=== PATIENT | male | born 1980 | race Caucasian/White ===

== ENCOUNTER 2016-12-06 21:02 | Emergency (ER) | payer SELFPAY ==
[~2016-12-06] VITALS: Ht 170.1 cm; Wt 99.8 kg
[~2016-12-06 21:02] MED LIST: ALBUTEROL0.09 MG/A2 IH; ALLEGRA180 MG PO; AMITRIPTYLINE10 MG PO; ANAPROX DS550 MG PO; BENTYL10 MG PO; BUPROPION HCL100 MG PO; BUPROPION75 MG PO; CLARITIN10 MG PO; CYCLOBENZAPRINE10 MG PO; DAYPRO600 M1 PO; FLEXERIL5 MG PO; GABAPENTIN300 M1 PO; HYDROCODONE BIT1 T11 PO; KEFLEX500 MG PO; LAMICTAL100 MG PO; LIDODERM 5% PATC1 EA PO; MINIPRESS5 M1 PO; MOTRIN600 MG PO; MOTRIN800 MG PO; Motrin,Rufen800 MG PO; NAPROSYN500 MG PO; NORCO 325 MG-51 TAB PO; OMEPRAZOLE MAGN20 MG PO; PEPCID20 MG PO; PERCOCET 325 MG1 TA2 PO; PREDNISONE20 M1 PO; PREDNISONE20 MG PO; PRILOSEC10 MG PO; PRILOSEC20 M2 PO; ROBAXIN500 M1 PO; ROBAXIN750 MG PO; SERTRALINE25 MG PO; SINGULAIR10 M1 PO; ULTRAM50 MG PO; VENLAFAXINE75 MG PO; VICODIN 5/500 505 MG PO; VICODIN 500 MG-1 TAB PO; VITAMIN D400 I1 PO; VOLTAREN50 M1 PO; ZOFRAN ODT4 MG SL
[2016-12-06] MEDS ORDERED: Motrin,Rufen800 MG PO (23:02)
[2016-12-06] MEDS ORDERED: CYCLOBENZAPRINE5 M3 PO (23:02)
== END 2016-12-06 23:08 | disposition home or self-care (01) ==
LOC: ED 21:02
DX: M54.16 Radiculopathy, lumbar region (principal); Z87.442 Personal history of urinary calculi

== ENCOUNTER 2017-06-13 15:00 | Emergency (ER) | payer OTHER ==
[~2017-06-13] VITALS: Ht 170.1 cm; Wt 104.3 kg
[~2017-06-13 15:00] MED LIST changes: +CYCLOBENZAPRINE5 M3 PO
[2017-06-13] MEDS ORDERED: NORCO 5-325 TA1 EACH PO (17:03)
[2017-06-13] MEDS ORDERED: CYCLOBENZAPRINE5 M3 PO (17:03)
[2017-06-13] MEDS ORDERED: Motrin,Rufen800 MG PO (17:03)
== END 2017-06-13 18:25 | disposition home or self-care (01) ==
LOC: ED 15:00
DX: S30.0XXA Contusion of lower back and pelvis, initial encounter (principal); F10.10 Alcohol abuse, uncomplicated; Z79.899 Other long term (current) drug therapy; W10.8XXA Fall (on) (from) other stairs and steps, initial encounter; Y93.89 Activity, other specified; Y92.89 Other specified places as the place of occurrence of the external cause; Y99.8 Other external cause status

== ENCOUNTER 2018-03-08 08:29 | Emergency (ER) | payer MEDICARE ==
[~2018-03-08] VITALS: Ht 170.1 cm; Wt 104.3 kg
--- NOTE | ~2018-03-08 | EKG ---
[place], [place] ELECTROCARDIOGRAM REPORT NAME: SOLEDAD MERCEDES UNIT #: [id number] ROOM: DOCTOR: EPIPHANY DRAFT REPORT BIRTHDATE: [birth year] [facility] Test Date: 2018-03-08 Test Time: 08:32:54 Pat Name: SOLEDAD MERCEDES Department: Room: Gender: Pre K Lead Teacher: KATIE : 1980 Requested By: DINO HOLBROOK Order Number: [id number] Reading MD: Virgilio Werner MD Measurements Intervals [place] Rate: 63 P: 38 MT: 154 QRS: 16 QRSD: 101 T: 30 QT: 383 QTc: 393 Interpretive Statements Sinus rhythm Normal ECG Electronically Signed On 03-12-2018 12:15:01 PDT by Virgilio Werner MD CM:EKGRPT:ELECTROCARDIOGRAM REPORT 0832 1215 [facility] DINO HOLBROOK MD
--- NOTE | ~2018-03-08 | EKG ---
[place], [place] ELECTROCARDIOGRAM REPORT NAME: SOLEDAD MERCEDES UNIT #: [id number] ROOM: DOCTOR: EPIPHANY DRAFT REPORT BIRTHDATE: [birth year] [facility] [place] Test Date: 2018-03-08 Test Time: 11:40:43 Pat Name: SOLEDAD MERCEDES Department: Room: Gender: Content Architect: Manisha Avila : 1980 Requested By: DINO HOLBROOK Order Number: [id number] Reading MD: Virgilio Werner MD Measurements Intervals [place] Rate: 63 P: 41 AR: 166 QRS: 11 QRSD: 100 T: 29 QT: 400 QTc: 410 Interpretive Statements Sinus rhythm The ECG is normal. Electronically Signed On 03-12-2018 12:15:34 PDT by Virgilio Werner MD CM:EKGRPT:ELECTROCARDIOGRAM REPORT 1140 1215 DINO HOLBROOK MD [facility] DINO HOLBROOK MD
[~2018-03-08 08:29] MED LIST changes: +NORCO 5-325 TA1 EACH PO
[2018-03-08 08:44] LABS: BASO # 0.1 10*3/uL (0.0-0.1); BASO % 0.8 % (0.0-1.0); EOS # 0.2 10*3/uL (0.0-0.4); EOS % 3.7 % (1.0-4.0); HEMATOCRIT 43.3 % (42.0-52.0); HEMOGLOBIN 14.7 g/dl (14.0-18.0); LYMPH % 31.2 % (27.0-41.0); MEAN CORPUSCULAR HGB 30.9 pg (27.0-31.0); MEAN CORPUSCULAR HGB CONC 33.9 g/dl (33.0-37.0); MEAN PLATELET VOLUME 9.5 fl (9.6-12.3); MONO # 0.4 10*3/uL (0.1-1.0); MONO % 6.6 % (3.0-9.0); NEUT # 3.8 10*3/uL (2.3-7.9); NEUT % 57.5 % (47.0-73.0); PLATELET COUNT AUTOMATED 268 10*3/uL (130-400); RED BLOOD COUNT 4.76 10*6/uL (4.50-5.90); RED CELL DISTRI WIDTH 12.3 % (0-14.5); WHITE BLOOD COUNT 6.5 10*3/uL (4.8-10.8)
[2018-03-08 08:52] LABS: ACT PARTIAL THROMBO TIME 22.5 SECONDS (20.8-31.5)
[2018-03-08 08:59] LABS: ALBUMIN 3.6 gm/dl (3.1-4.5); ALKALINE PHOSPHATASE 99 U/L (45-117); BUN 13 mg/dl (7-24); CHLORIDE 104 mmol/L (98-107); CREATININE 1.39 mg/dL (0.70-1.30); POTASSIUM 3.9 mmol/L (3.5-5.1); SGOT/AST 15 IU/L (3-35); SGPT/ALT 28 U/L (12-78); SODIUM 139 mmol/L (136-145); TOTAL PROTEIN 7.9 gm/dL (6.4-8.2)
[2018-03-08 09:06] LABS: TROPONIN I < 0.015 ng/ml (<0.045)
== END 2018-03-08 12:00 | disposition home or self-care (01) ==
LOC: ED 08:29
PROVIDERS: Emergency Medicine
DX: R07.9 Chest pain, unspecified (principal); R06.02 Shortness of breath; I10 Essential (primary) hypertension; E78.00 Pure hypercholesterolemia, unspecified; G89.29 Other chronic pain; Z79.899 Other long term (current) drug therapy; Z87.442 Personal history of urinary calculi

== ENCOUNTER → 2018-09-18 | Emergency (ER) | payer MEDICARE ==
[~2018-09-18] VITALS: Ht 170.1 cm; Wt 106.6 kg
[~2018-09-18] MED LIST changes: +HYDROCHLOROTHIA25 M1 PO
== END ==
LOC: ED 20:31
DX: R19.7 Diarrhea, unspecified (principal); R11.0 Nausea; G89.29 Other chronic pain; Z79.899 Other long term (current) drug therapy; Z87.442 Personal history of urinary calculi

== ENCOUNTER 2019-01-31 17:21 | Emergency (ER) | payer MEDICARE ==
[~2019-01-31] VITALS: Ht 170.1 cm; Wt 104.3 kg
[2019-01-31] MEDS ORDERED: PREDNISONE20 M1 PO (19:37)
[2019-01-31] MEDS ORDERED: ROBAXIN500 M1 PO (19:37)
== END 2019-01-31 20:02 | disposition home or self-care (01) ==
LOC: ED 17:21
DX: M54.41 Lumbago with sciatica, right side (principal); Z87.442 Personal history of urinary calculi; Z79.899 Other long term (current) drug therapy

== ENCOUNTER 2019-02-16 13:57 | Emergency (ER) | payer MEDICARE ==
[~2019-02-16] VITALS: Ht 170.1 cm; Wt 106.6 kg
[2019-02-16] MEDS ORDERED: CYCLOBENZAPRINE5 M3 PO (14:58)
[2019-02-16] MEDS ORDERED: KETOROLAC10 MG PO (14:58)
== END 2019-02-16 15:15 | disposition home or self-care (01) ==
LOC: ED 13:57
DX: M54.5 Low back pain (principal); G89.29 Other chronic pain; Z79.899 Other long term (current) drug therapy; Z87.442 Personal history of urinary calculi

== ENCOUNTER 2019-07-31 10:58 | Emergency (ER) | payer OTHER ==
[~2019-07-31] VITALS: Ht 170.1 cm; Wt 106.6 kg
[~2019-07-31 10:58] MED LIST changes: +KETOROLAC10 MG PO
[2019-07-31] MEDS ORDERED: METHOCARBAMOL500 M1 PO (11:57)
[2019-07-31] MEDS ORDERED: MEDROL DOSEPAK4 MG PO (11:57)
[2019-07-31] MEDS ORDERED: NAPROSYN500 MG PO (11:57)
== END 2019-07-31 11:44 | disposition home or self-care (01) ==
LOC: ED 10:58
DX: M54.5 Low back pain (principal); G89.29 Other chronic pain; K21.9 Gastro-esophageal reflux disease without esophagitis; I10 Essential (primary) hypertension; Z79.899 Other long term (current) drug therapy

== ENCOUNTER 2019-10-23 13:54 | Emergency (ER) | payer OTHER ==
[~2019-10-23] VITALS: Ht 170.1 cm; Wt 108.9 kg
[~2019-10-23 13:54] MED LIST changes: +MEDROL DOSEPAK4 MG PO; +METHOCARBAMOL500 M1 PO
[2019-10-23] MEDS ORDERED: NAPROSYN500 MG PO (15:17)
[2019-10-23] MEDS ORDERED: METHOCARBAMOL500 M1 PO (15:17)
[2019-10-23] MEDS ORDERED: MEDROL DOSEPAK4 MG PO (15:17)
== END 2019-10-23 22:43 | disposition home or self-care (01) ==
LOC: ED 13:54
DX: M54.12 Radiculopathy, cervical region (principal); Z79.899 Other long term (current) drug therapy

== ENCOUNTER 2019-11-20 15:41 | Emergency (ER) | payer OTHER ==
[~2019-11-20] VITALS: Ht 170.1 cm; Wt 106.6 kg
== END 2019-11-20 17:55 | disposition home or self-care (01) ==
LOC: ED 15:41
DX: S93.401A Sprain of unspecified ligament of right ankle, initial encounter (principal); Z79.899 Other long term (current) drug therapy; Z79.2 Long term (current) use of antibiotics; X58.XXXA Exposure to other specified factors, initial encounter; Y93.89 Activity, other specified; Y92.89 Other specified places as the place of occurrence of the external cause; Y99.8 Other external cause status

== ENCOUNTER 2020-02-10 20:14 | Observation (INO) | payer OTHER ==
[~2020-02-10] VITALS: Ht 170.2 cm; Wt 107.5 kg
[2020-02-10 20:25] VITALS: BP 132/83
[2020-02-10 20:49] VITALS: BP 157/81
[2020-02-10 21:30] VITALS: BP 143/77
[2020-02-10 21:54] LABS: BASO # 0.1 10*3/uL (0.0-0.1); EOS # 0.3 10*3/uL (0.0-0.4); EOS % 3.8 % (1.0-4.0); LYMPH # 3.2 10*3/uL (1.3-4.4); LYMPH % 40.8 % (27.0-41.0); MEAN CELL VOLUME 90.3 fl (80.0-94.0); MEAN CORPUSCULAR HGB 30.1 pg (27.0-31.0); MEAN CORPUSCULAR HGB CONC 33.3 g/dl (33.0-37.0); MEAN PLATELET VOLUME 9.8 fl (9.6-12.3); MONO # 0.7 10*3/uL (0.1-1.0); MONO % 8.2 % (3.0-9.0); NEUT # 3.7 10*3/uL (2.3-7.9); NEUT % 46.1 % (47.0-73.0); PLATELET COUNT AUTOMATED 278 10*3/uL (130-400); RED BLOOD COUNT 4.65 10*6/uL (4.50-5.90); RED CELL DISTRI WIDTH 12.5 % (0-14.5); WHITE BLOOD COUNT 7.9 10*3/uL (4.8-10.8)
[2020-02-10 22:12] LABS: ALBUMIN 3.6 gm/dl (3.1-4.5); ALKALINE PHOSPHATASE 83 U/L (45-117); BUN 14 mg/dl (7-24); CHLORIDE 106 mmol/L (98-107); CREATININE 1.26 mg/dL (0.70-1.30); POTASSIUM 3.7 mmol/L (3.5-5.1); SGOT/AST 14 IU/L (3-35); SGPT/ALT 27 U/L (12-78); SODIUM 138 mmol/L (136-145)
[2020-02-10 22:16] LABS: TOTAL PROTEIN 7.6 gm/dL (6.4-8.2); TROPONIN I < 0.015 ng/ml (<0.045)
--- NOTE | 2020-02-10 22:29 | NUR ---
PATIENT IN BED AWAKE AND ALERT ON CELLPHONE AT THIS TIME. NO ACUTE DISTRESS NOTED. RN WILL CONT TO MONITOR.
[2020-02-10 23:01] VITALS: BP 123/74
[2020-02-11 00:50] VITALS: BP 148/93
--- NOTE | 2020-02-11 00:50 | NUR ---
A 39, admitted to 4E, under the services of BIENVENIDO Dior DO with a diagnosis of SYNCOPE AND COLLAPSE. Chief complaint is PT WAS STANDING UP AFTER USING BATHROOM PULLING UP HIS PANTS AND HE REMEMBERS WAKING UP ON THE FLOOR. Patient arrived via bed from ER. Monitor applied. Initial assessment completed. Vital signs taken and recorded. BIENVENIDO DIOR DO notified of admission to the unit. Orders received. See assessment for past medical history, medications and allergies. Patient and/or family oriented to unit. [facility] 4E. visitation policy reviewed. Clothing/patient valuable form completed. OMARI SKINNER
[2020-02-11] MEDS ORDERED: LYRICA75 M1 PO (01:25)
[2020-02-11] MEDS ORDERED: ZESTRIL10 MG PO (01:25)
[2020-02-11] MEDS ORDERED: NATURE'S BLEND F1 MG PO (01:25)
[2020-02-11] MEDS ORDERED: VITAMIN B1250 MCG PO (01:26)
[2020-02-11 03:22] LABS: BASO # 0.1 10*3/uL (0.0-0.1); BASO % 0.9 % (0.0-1.0); EOS # 0.3 10*3/uL (0.0-0.4); EOS % 4.4 % (1.0-4.0); HEMATOCRIT 42.8 % (42.0-52.0); LYMPH # 2.9 10*3/uL (1.3-4.4); LYMPH % 43.2 % (27.0-41.0); MEAN CELL VOLUME 89.7 fl (80.0-94.0); MEAN CORPUSCULAR HGB 30.2 pg (27.0-31.0); MEAN CORPUSCULAR HGB CONC 33.6 g/dl (33.0-37.0); MEAN PLATELET VOLUME 9.6 fl (9.6-12.3); MONO # 0.6 10*3/uL (0.1-1.0); MONO % 8.7 % (3.0-9.0); NEUT # 2.9 10*3/uL (2.3-7.9); NEUT % 42.7 % (47.0-73.0); PLATELET COUNT AUTOMATED 285 10*3/uL (130-400); RED BLOOD COUNT 4.77 10*6/uL (4.50-5.90); RED CELL DISTRI WIDTH 12.2 % (0-14.5); WHITE BLOOD COUNT 6.8 10*3/uL (4.8-10.8)
[2020-02-11 03:33] LABS: INTERNATIONAL NORM RATIO 1.1 (2.0-3.5)
[2020-02-11 03:39] LABS: ALBUMIN 3.4 gm/dl (3.1-4.5); ALKALINE PHOSPHATASE 79 U/L (45-117); BUN 12 mg/dl (7-24); CHLORIDE 108 mmol/L (98-107); CREATININE 1.12 mg/dL (0.70-1.30); HDL CHOLESTEROL 34 mg/dl (40-60); POTASSIUM 3.7 mmol/L (3.5-5.1); SGOT/AST 12 IU/L (3-35); SGPT/ALT 26 U/L (12-78); SODIUM 140 mmol/L (136-145); TOTAL PROTEIN 7.3 gm/dL (6.4-8.2); TRIGLYCERIDES 112 mg/dl (<150); VLDL CHOLESTEROL 22 mg/dL (6-40)
[2020-02-11 03:40] LABS: CHOLESTEROL 233 mg/dL (<200); LDL CHOLESTEROL 177 mg/dL (9-159)
--- NOTE | 2020-02-11 04:00 | NUR ---
PT RESTING IN BED WITH EYES CLOSED. RESP-EASY AND REGULAR. IVF INFUSING WITH NO PROBLEM. CALL LIGHT IN REACH.
--- NOTE | 2020-02-11 06:00 | NUR ---
PT RESTING IN BED WITH EYES CLOSED. RESP-EASY AND REGULAR. IVF INFUSING WITH NO PROBLEM. CALL LIGHT IN REACH.
--- NOTE | 2020-02-11 07:30 | NUR ---
RESTING IN BED. VOICES NO CONCERNS. ASSESSMENT COMPLETE. VSS.
--- NOTE | 2020-02-11 07:57 | NUR ---
24 HR chart check completed.
[2020-02-11 08:00] VITALS: BP 124/86
--- NOTE | 2020-02-11 08:08 | NUR ---
NOTIFIED PATIENTS MED REC NEEDS DONE.
--- NOTE | 2020-02-11 09:00 | NUR ---
Supervisor [employer] Service in to talk to patient. Patient states lives at home with . There are 2 steps in the home. Physician: me doctor in [facility], doesn't remember her last name, first name is Dinah Pharmacy: [facility] Home health services: none Patient's level of ADLs: INDEPENDENT Patient has working utilities: all working DME: none Follow-up physician's appointment after d/c: will be made by hospitalist nurse director upon discharge Does patient want to access PORTAL?: no Discharge plan discussed with patient, he states he lives at home with his and family, he is independent in adls and ambulation, drives, he states he will return home when discharged and denies any home needs, case management will follow. KERRI MUNOZ
--- NOTE | 2020-02-11 11:20 | NUR ---
Discharge instructions reviewed with patient/family. Patient receptive and verbalizes understanding. Follow-up care arranged. Written instructions given to patient/family. IV REMOVED AND MONITOR TAKEN OFF. TALHA POLO
== END 2020-02-11 11:20 | disposition home or self-care (01) ==
LOC: ED 20:14 → EDHOLD 23:17 → 4E 02-11 00:13
PROVIDERS: Emergency Medicine; Student in an Organized Health Care Education/Training Program; ADMIT Family Medicine; ATTEND Family Medicine
DX: R55 Syncope and collapse (principal); E78.5 Hyperlipidemia, unspecified; E83.51 Hypocalcemia; M54.9 Dorsalgia, unspecified; I10 Essential (primary) hypertension; F43.10 Post-traumatic stress disorder, unspecified; F41.9 Anxiety disorder, unspecified; F31.9 Bipolar disorder, unspecified

== ENCOUNTER 2020-02-19 21:55 | Emergency (ER) | payer OTHER ==
[~2020-02-19] VITALS: Ht 170.1 cm; Wt 108.9 kg
[~2020-02-19 21:55] MED LIST changes: +LYRICA75 M1 PO; +NATURE'S BLEND F1 MG PO; +VITAMIN B1250 MCG PO; +ZESTRIL10 MG PO
[2020-02-19 22:53] LABS: BASO # 0.1 10*3/uL (0.0-0.1); BASO % 0.7 % (0.0-1.0); EOS # 0.2 10*3/uL (0.0-0.4); EOS % 2.3 % (1.0-4.0); HEMATOCRIT 39.3 % (42.0-52.0); LYMPH # 2.3 10*3/uL (1.3-4.4); LYMPH % 28.8 % (27.0-41.0); MEAN CELL VOLUME 89.3 fl (80.0-94.0); MEAN CORPUSCULAR HGB 30.5 pg (27.0-31.0); MEAN CORPUSCULAR HGB CONC 34.1 g/dl (33.0-37.0); MEAN PLATELET VOLUME 9.6 fl (9.6-12.3); MONO # 0.7 10*3/uL (0.1-1.0); MONO % 8.6 % (3.0-9.0); NEUT # 4.8 10*3/uL (2.3-7.9); NEUT % 59.4 % (47.0-73.0); PLATELET COUNT AUTOMATED 281 10*3/uL (130-400); RED CELL DISTRI WIDTH 12.2 % (0-14.5); WHITE BLOOD COUNT 8.1 10*3/uL (4.8-10.8)
[2020-02-19 23:07] LABS: ALBUMIN 3.7 gm/dl (3.1-4.5); ALKALINE PHOSPHATASE 82 U/L (45-117); BUN 16 mg/dl (7-24); CHLORIDE 106 mmol/L (98-107); CREATININE 1.43 mg/dL (0.70-1.30); POTASSIUM 3.3 mmol/L (3.5-5.1); SGOT/AST 19 IU/L (3-35); SGPT/ALT 24 U/L (12-78); SODIUM 139 mmol/L (136-145); TOTAL PROTEIN 7.6 gm/dL (6.4-8.2)
[2020-02-19 23:08] LABS: ETHYL ALCOHOL < 3.0 mg/dl (<3)
[2020-02-19 23:09] LABS: ACETAMINOPHEN (TYLENOL) < 5.0 ug/ml (10-30)
[2020-02-20 01:01] LABS: URINE AMPHETAMINES < 1000 (1000ng/ml); URINE BARBITURATES < 200 (200ng/ml); URINE BENZODIAZEPINES < 200 (200ng/ml); URINE CANNABINOIDS (THC) > 50 (50ng/ml); URINE COCAINE < 300 (300ng/ml); URINE METHADONE < 300 (300ng/ml); URINE OPIATES < 300 (300ng/ml)
[2020-02-20 01:03] LABS: URINE PHENCYCLIDINE < 25 (25ng/ml)
[2020-02-20 01:27] LABS: BILIRUBIN NEGATIVE; BLOOD NEGATIVE (NEGATIVE); CLARITY CLEAR (CLEAR); COLOR YELLOW (YELLOW); GLUCOSE NEGATIVE; KETONE NEGATIVE; LEUKO ESTERASE NEGATIVE (NEGATIVE); NITRITE NEGATIVE (NEGATIVE); SPECIFIC GRAVITY > 1.030 (1.001-1.030)
[2020-02-20 01:28] LABS: RBC 0-2 rbc/hpf (0-2); WBC 0-2 wbc/hpf (0-5)
== END 2020-02-20 06:35 | disposition home or self-care (01) ==
LOC: ED 21:55
PROVIDERS: Emergency Medicine
DX: Z79.899 Other long term (current) drug therapy (principal); F41.9 Anxiety disorder, unspecified; K21.9 Gastro-esophageal reflux disease without esophagitis

== ENCOUNTER 2020-04-28 13:05 | Emergency (ER) | payer OTHER ==
[~2020-04-28] VITALS: Ht 170.1 cm; Wt 104.3 kg
[2020-04-28] MEDS ORDERED: MEDROL DOSEPAK4 MG PO (13:32)
== END 2020-04-28 13:40 | disposition home or self-care (01) ==
LOC: ED 13:05
DX: G89.29 Other chronic pain (principal); M54.9 Dorsalgia, unspecified; Z79.899 Other long term (current) drug therapy

== ENCOUNTER → 2020-06-26 | Outpatient (CLI) | payer OTHER | END | disposition home or self-care (01) | LOC: RAD 08:13 | PROVIDERS: ATTEND Nurse Practitioner Family | DX: M54.41 Lumbago with sciatica, right side (principal); M54.16 Radiculopathy, lumbar region ==

== ENCOUNTER → 2020-08-06 | Outpatient (CLI) | payer OTHER | END | disposition home or self-care (01) | LOC: MRI 07-30 01:35 | PROVIDERS: ATTEND Nurse Practitioner Family | DX: M51.26 Other intervertebral disc displacement, lumbar region (principal); M48.061 Spinal stenosis, lumbar region without neurogenic claudication; M48.07 Spinal stenosis, lumbosacral region; M54.41 Lumbago with sciatica, right side ==

== ENCOUNTER → 2020-08-12 | Outpatient (CLI) | payer OTHER | END | disposition home or self-care (01) | LOC: US 01:30 | PROVIDERS: ATTEND Nurse Practitioner Family | DX: R10.11 Right upper quadrant pain (principal) ==

== ENCOUNTER 2020-08-27 21:13 | Emergency (ER) | payer OTHER ==
[~2020-08-27] VITALS: Ht 170.1 cm; Wt 109.8 kg
[2020-08-27 21:44] LABS: BASO # 0.1 10*3/uL (0.0-0.1); BASO % 0.8 % (0.0-1.0); EOS # 0.2 10*3/uL (0.0-0.4); EOS % 2.3 % (1.0-4.0); HEMATOCRIT 43.7 % (42.0-52.0); LYMPH # 3.5 10*3/uL (1.3-4.4); MEAN CELL VOLUME 89.4 fl (80.0-94.0); MEAN CORPUSCULAR HGB 30.7 pg (27.0-31.0); MEAN CORPUSCULAR HGB CONC 34.3 g/dl (33.0-37.0); MEAN PLATELET VOLUME 9.7 fl (9.6-12.3); MONO # 0.7 10*3/uL (0.1-1.0); NEUT # 5.4 10*3/uL (2.3-7.9); NEUT % 54.7 % (47.0-73.0); PLATELET COUNT AUTOMATED 388 10*3/uL (130-400); RED BLOOD COUNT 4.89 10*6/uL (4.50-5.90); RED CELL DISTRI WIDTH 11.7 % (0-14.5); WHITE BLOOD COUNT 9.9 10*3/uL (4.8-10.8)
[2020-08-27 21:56] LABS: ACT PARTIAL THROMBO TIME 25.4 SECONDS (20.0-32.1)
[2020-08-27 22:01] LABS: ALBUMIN 3.8 gm/dl (3.1-4.5); ALKALINE PHOSPHATASE 94 U/L (45-117); BUN 11 mg/dl (7-24); CHLORIDE 101 mmol/L (98-107); CREATININE 1.33 mg/dL (0.70-1.30); POTASSIUM 3.6 mmol/L (3.5-5.1); SGOT/AST 22 IU/L (3-35); SGPT/ALT 38 U/L (12-78); SODIUM 137 mmol/L (136-145); TOTAL PROTEIN 8.3 gm/dL (6.4-8.2)
[2020-08-27 22:02] LABS: TROPONIN I < 0.015 ng/ml (<0.045)
== END 2020-08-28 00:35 | disposition home or self-care (01) ==
LOC: ED 21:13
PROVIDERS: Internal Medicine
DX: R07.89 Other chest pain (principal); Z79.899 Other long term (current) drug therapy; Z98.890 Other specified postprocedural states

== ENCOUNTER → 2020-10-22 | Outpatient (CLI) | payer OTHER | END | disposition home or self-care (01) | LOC: NM 01:24 | PROVIDERS: ATTEND Nurse Practitioner Family | DX: R10.11 Right upper quadrant pain (principal) ==

== ENCOUNTER 2020-10-27 14:52 | Emergency (ER) | payer OTHER ==
[~2020-10-27] VITALS: Ht 170.1 cm; Wt 108.9 kg
== END 2020-10-27 16:00 | disposition home or self-care (01) ==
LOC: ED 14:52
DX: S05.01XA Injury of conjunctiva and corneal abrasion without foreign body, right eye, initial encounter (principal); Z79.899 Other long term (current) drug therapy; Z87.442 Personal history of urinary calculi; Z98.890 Other specified postprocedural states; X58.XXXA Exposure to other specified factors, initial encounter; Y93.89 Activity, other specified; Y92.098 Other place in other non-institutional residence as the place of occurrence of the external cause; Y99.8 Other external cause status

== ENCOUNTER 2020-12-13 23:42 | Emergency (ER) | payer OTHER ==
[2020-12-14] MEDS ORDERED: ULTRAM50 MG PO (04:49)
== END 2020-12-14 05:05 | disposition home or self-care (01) ==
LOC: ED 23:42
DX: S82.832A Other fracture of upper and lower end of left fibula, initial encounter for closed fracture (principal); F31.9 Bipolar disorder, unspecified; F41.9 Anxiety disorder, unspecified; E78.5 Hyperlipidemia, unspecified; I10 Essential (primary) hypertension; Z79.899 Other long term (current) drug therapy; Z87.442 Personal history of urinary calculi; Z98.890 Other specified postprocedural states; W18.49XA Other slipping, tripping and stumbling without falling, initial encounter; Y93.89 Activity, other specified; Y92.89 Other specified places as the place of occurrence of the external cause; Y99.8 Other external cause status

== ENCOUNTER → 2021-01-16 | Outpatient (CLI) | payer OTHER | END | disposition home or self-care (01) | LOC: MRI 13:11 | PROVIDERS: ATTEND Orthopaedic Surgery | DX: S93.432A Sprain of tibiofibular ligament of left ankle, initial encounter (principal); M76.72 Peroneal tendinitis, left leg; S93.492D Sprain of other ligament of left ankle, subsequent encounter; S93.402D Sprain of unspecified ligament of left ankle, subsequent encounter; X58.XXXD Exposure to other specified factors, subsequent encounter ==

== ENCOUNTER 2021-02-17 12:59 | Emergency (ER) | payer OTHER ==
[~2021-02-17] VITALS: Wt 106.6 kg
== END 2021-02-17 19:58 | disposition left against medical advice (07) ==
LOC: ED 12:59
DX: R09.89 Other specified symptoms and signs involving the circulatory and respiratory systems (principal); R05 Cough; Z53.21 Procedure and treatment not carried out due to patient leaving prior to being seen by health care provider

== ENCOUNTER 2021-02-24 14:37 | Emergency (ER) | payer OTHER ==
[~2021-02-24] VITALS: Ht 170.1 cm; Wt 106.6 kg
== END 2021-02-24 18:00 | disposition home or self-care (01) ==
LOC: ED 14:37
DX: S99.912A Unspecified injury of left ankle, initial encounter (principal); M79.672 Pain in left foot; E78.5 Hyperlipidemia, unspecified; I10 Essential (primary) hypertension; X58.XXXA Exposure to other specified factors, initial encounter; Y93.89 Activity, other specified; Y92.89 Other specified places as the place of occurrence of the external cause; Y99.8 Other external cause status

== ENCOUNTER 2021-03-30 20:45 | Emergency (ER) | payer OTHER ==
[~2021-03-30] VITALS: Wt 105.2 kg
[2021-03-31] MEDS ORDERED: MEDROL DOSEPAK4 MG PO (06:10)
[2021-03-31] MEDS ORDERED: HYDROCODONE-AC1 EAC1 PO (06:10)
[2021-03-31] MEDS ORDERED: ORPHENADRINE C100 M1 PO (06:10)
== END 2021-03-31 06:15 | disposition home or self-care (01) ==
LOC: ED 20:45
DX: M48.061 Spinal stenosis, lumbar region without neurogenic claudication (principal); M51.36 Other intervertebral disc degeneration, lumbar region; I10 Essential (primary) hypertension; E78.5 Hyperlipidemia, unspecified; Z79.899 Other long term (current) drug therapy

== ENCOUNTER → 2021-04-27 | Outpatient (CLI) | payer OTHER ==
[~2021-04-27] MED LIST changes: +HYDROCODONE-AC1 EAC1 PO; +ORPHENADRINE C100 M1 PO
== END | disposition home or self-care (01) ==
LOC: MRI 11:00
PROVIDERS: ATTEND Nurse Practitioner Family
DX: K86.89 Other specified diseases of pancreas (principal)

== ENCOUNTER 2021-12-27 14:05 | Emergency (ER) | payer OTHER ==
[~2021-12-27] VITALS: Ht 170.1 cm; Wt 102.1 kg
== END 2021-12-27 17:05 | disposition home or self-care (01) ==
LOC: ED 14:05
DX: H57.89 Other specified disorders of eye and adnexa (principal); I10 Essential (primary) hypertension; E78.5 Hyperlipidemia, unspecified; Z79.899 Other long term (current) drug therapy

== ENCOUNTER 2022-08-11 22:10 | Emergency (ER) | payer OTHER ==
[~2022-08-11] VITALS: Ht 175.2 cm; Wt 90.7 kg
[2022-08-11 22:38] LABS: HEMATOCRIT 40.3 % (42.0-52.0); MEAN CORPUSCULAR HGB 31.3 pg (27.0-31.0); MEAN CORPUSCULAR HGB CONC 35.2 g/dl (33.0-37.0); MEAN PLATELET VOLUME 9.1 fl (9.6-12.3); PLATELET COUNT AUTOMATED 366 10*3/uL (130-400); RED BLOOD COUNT 4.53 10*6/uL (4.50-5.90); RED CELL DISTRI WIDTH 13.5 % (0-14.5); WHITE BLOOD COUNT 7.4 10*3/uL (4.8-10.8)
[2022-08-11 22:40] LABS: MANUAL DIFF REFLEX YES
[2022-08-11 23:08] LABS: PLATELET SUFFICIENCY NORMAL (NORMAL); TOTAL CELLS COUNTED 100 #CELLS
[2022-08-11 23:22] LABS: ALKALINE PHOSPHATASE 101 U/L (46-116); BUN 7 mg/dl (9-23); CHLORIDE 99 mmol/L (98-107); LIPASE 38 U/L (12-53); POTASSIUM 2.8 mmol/L (3.4-5.1); SGPT/ALT 20 U/L (10-49)
[2022-08-12] MEDS ORDERED: PAXLOVID 300-11 EAC2 PO (01:52)
[2022-08-12] MEDS ORDERED: POTASSIUM CHLO20 ME3 PO (01:55)
== END 2022-08-12 02:49 | disposition home or self-care (01) ==
LOC: ED 22:10
PROVIDERS: Emergency Medicine
DX: U07.1 COVID-19 (principal); E86.0 Dehydration; E87.6 Hypokalemia; E87.1 Hypo-osmolality and hyponatremia; K21.9 Gastro-esophageal reflux disease without esophagitis; I10 Essential (primary) hypertension; Z79.899 Other long term (current) drug therapy; Z98.890 Other specified postprocedural states; F17.200 Nicotine dependence, unspecified, uncomplicated

== ENCOUNTER 2023-03-23 22:17 | Emergency (ER) | payer OTHER ==
[~2023-03-23 22:17] MED LIST changes: +PAXLOVID 300-11 EAC2 PO; +POTASSIUM CHLO20 ME3 PO
[2023-03-23] MEDS ORDERED: PREDNISONE20 M1 PO (23:58)
== END 2023-03-24 00:01 | disposition home or self-care (01) ==
LOC: ED 22:17
DX: M79.672 Pain in left foot (principal); M79.89 Other specified soft tissue disorders; K21.9 Gastro-esophageal reflux disease without esophagitis; F41.9 Anxiety disorder, unspecified; I10 Essential (primary) hypertension; Z98.890 Other specified postprocedural states; Z87.442 Personal history of urinary calculi